=== PATIENT | female | born 1985 | race Caucasian/White ===

== ENCOUNTER 2023-05-11 02:53 | Emergency (ER) | payer OTHER, SELFPAY ==
[2023-05-11 02:54] VITALS: BP 137/84; PULSE 80; RESP 16; TEMP 36.6; O2SAT 100; BMI 24.4
[2023-05-11 02:57] VITALS: BP 137/84; PULSE 80; RESP 13; TEMP 36.6; O2SAT 100
--- NOTE | 2023-05-11 03:20 | CT_ITS ---
INDICATION: Neck pain EXAMINATION: CT NECK WITH CONTRAST - CT Soft Tissue Neck W/ Contrast Injection TECHNIQUE: Helically acquired images were obtained of the neck with sagittal and coronal reconstructed images. Individualized dose optimization techniques were used for this CT. IV contrast dosage and agent: 100 mL of Isovue 370. COMPARISON: None. FINDINGS: NASOPHARYNX: Unremarkable. SUPRAHYOID NECK: Unremarkable oropharynx, oral cavity, parapharyngeal space, and retropharyngeal space. INFRAHYOID NECK: Unremarkable larynx, hypopharynx, and supraglottis. THYROID: No nodule or mass visualized. SALIVARY GLANDS: Unremarkable. LYMPH NODES: No evidence of adenopathy. VASCULAR STRUCTURES: Unremarkable. VISUALIZED PORTIONS OF THE ORBITS, PARANASAL SINUSES, MASTOID AIR CELLS AND SKULL BASE: Unremarkable. BONES: Unremarkable. THORACIC INLET: Visualized lung apices are clear. CT/Soft Tissue Neck WITH Contrast IMPRESSION: Normal CT of the neck with IV contrast. Electronically Signed: Cayden Newell DO at 4:19 EDT ,
--- NOTE | 2023-05-11 03:22 | EX.ED.DYSGE1 ---
HPI History of Present Illness Chief Complaint: Weakness Detail of Chief Complaint: Dental pain and syncope Informant: patient Onset/Context/Timing Onset: Days (3) Context: Gradual Onset Timing: Continuous Quality: Throbbing Location: Right lower molars Worsened by: Nothing Relieved by: Nothing Narrative Narrative: Patient presents with a syncopal episode that occurred tonight. Patient states she passed out while she is in the bathroom. Patient states she has had a toothache that has been getting worse over the last 3 days. Patient stated she is scheduled to have it extracted later today. Patient states she has pain in her right lower molars that radiates into her neck. Patient states she has some numbness and tingling in both hands. Patient describes her pain as throbbing. Patient states nothing makes it better nothing makes it worse. Patient admits to low-grade fever of 100. Patient also admits to some subjective chills. [facility] Medical History (Updated 05/11/23 @ 04:[address] Jones Lam DO) Graves disease Hypothyroid Home Medications azithromycin 250 mg tablet 250 mg PO DAILY 05/11/23 [History Last Taken Unknown] levothyroxine 125 mcg tablet (Synthroid) 125 mcg PO DAILY 05/11/23 [History Last Taken Unknown] Allergy/AdvReac Type Severity Reaction Status Date / Time No Known Allergies Allergy Verified 05/11/23 02:58 Surgical History (Updated 05/11/23 @ 03:[address] Jones Lam DO) History of History of tonsillectomy and adenoidectomy Hx of thyroidectomy Previous back surgery Social History Smoking Status: Never smoker [facility] ED Constitutional Constitutional ED: Reports chills and fever(s) Eyes Eyes: Denies blurry vision or change in vision ENT ENT ED: Reports sore throat; Denies rhinorrhea Cardiovascular Cardiovascular: Denies chest pain or palpitations Respiratory/Chest Respiratory/Chest: Denies cough or dyspnea Gastrointestinal Gastrointestinal: Reports nausea and vomiting Genitourinary Genitourinary ED: Denies dysuria or hematuria Musculoskeletal Musculoskeletal: Reports neck pain; Denies back pain Integumentary Denies abscess or rash Neurologic Neurologic: Denies headache(s) or weakness Allergic/Immunologic Allergic/Immunologic ED: Denies mouth swelling or urticaria EXAM Physical Exam Const Vital Signs: 05/11/23 02:54 05/11/23 02:57 05/11/23 02:58 Temperature 97.9 F 97.9 F Temperature Source Temporal Temporal Pulse Rate 80 80 Respiratory Rate 16 13 Respiratory Effort Normal Respiratory Pattern Normal Blood Pressure 137/84 H 137/84 H Blood Pressure Mean 101 101 Pulse Ox 100 100 05/11/23 03:57 05/11/23 04:00 Temperature 98 F 98 F Temperature Source Temporal Temporal Pulse Rate 75 75 Respiratory Rate 18 13 Respiratory Effort Respiratory Pattern Blood Pressure 128/72 H 128/72 H Blood Pressure Mean 90 90 Pulse Ox 100 98 Positive well nourished and well developed General Appearance ED: well developed and NAD HEENT Reports moist mucous membranes HEENT Narrative: There is a dental carry noted over the right lower molars. There is some mild gingival edema. There is no erythema. There is no fluctuance. Oropharynx is clear. Airway is patent. There is no unilateral pharyngeal swelling. Eyes PERRL and EOMs intact bilaterally Neck supple and no JVD General: tenderness Resp normal respiratory effort and clear to auscultation bilaterally Cardio regular rate and regular rhythm GI non-tender Palpation: soft Neuro oriented x3, CN's II-XII intact bilaterally and no sensory deficits noted Sensorium / Orientation: alert Motor Exam: strength 5/5 throughout Psych mental status grossly normal MDM MDM MDM Narrative Medical decision making narrative: Differential diagnosis includes dental abscess, infected dental caries, pharyngeal abscess, syncope, and dehydration. CBC will be obtained to assess for leukocytosis and anemia. Basic metabolic profile will be obtained to assess for electrolyte abnormality and renal function. CT scan of the soft tissue neck will be obtained to assess for abscess. Lab Data Attestation: I reviewed the patient's lab results. Lab results narrative: CBC was reviewed. There is anemia with a hemoglobin of 8.9 and hematocrit of 29.5. Platelets were normal. White blood cell count was normal. Basic metabolic profile was reviewed. Potassium was slightly low at 3.3. Glucose was 115. The remainder was within normal limits. Labs: Laboratory Results - last 24 hr 05/11/23 05/11/23 03:40 03:40 WBC 7.9 RBC 3.76 L Hgb 8.9 L Hct 29.5 L MCV 78.5 L MCH 23.7 L MCHC 30.2 L RDW Std Deviation 41.2 RDW Coeff of James 14.4 Plt Count 225 MPV 11.0 Immature Gran % (Auto) 0.600 Neut % (Auto) 84.5 H Lymph % (Auto) 6.7 L [place] % (Auto) 7.4 Eos % (Auto) 0.3 Baso % (Auto) 0.5 Absolute Neuts (auto) 6.7 Absolute Lymphs (auto) 0.53 L Nucleated RBC % 0 Microcytosis 1+ Sodium 138 Potassium 3.3 L Chloride 107 Carbon Dioxide 24.0 Anion Gap 7 BUN 12 Creatinine 0.89 Estim Creat Clear Calc 96.73 Est GFR (MDRD) Af Amer 91 Est GFR (MDRD) Non-Af 75 BUN/Creatinine Ratio 13.4 Glucose 115 H Calcium 8.2 L Radiography Diagnostic Testing: Clinical Impression(s) from Imaging Studies Soft Tissue Neck CT 05/11/23 03:20 IMPRESSION: Normal CT of the neck with IV contrast. Electronically Signed: Cayden Newell DO at 4:19 EDT Reading Location ID and State: [facility] / [place] Tel , Service support , CT scan of the soft tissue neck was obtained. There is no evidence of abscess or soft tissue swelling. This was interpreted by the radiologist and was independently reviewed by myself. Treatment and Re-Evaluation :: Patient was given IV fluids, morphine, and Zofran. Patient was given a dose of Unasyn. Patient was still having some pain in the reevaluation. Patient was given a repeat dose of morphine. Patient was advised of her findings. Patient was given a dose of potassium for her hypokalemia. Patient was instructed to follow-up with her dentist today as scheduled. Patient and spouse understood and were agreeable with the plan. All questions were answered. Discharge Plan Triage Chief Complaint: Weakness ED Provider: Jones Lam Dx/Rx/DC Orders Clinical Impression: Syncope, Infected dental caries Instructions: ED Dental Cavity, ED Fainting, Vagal Reaction Prescriptions: No Action azithromycin 250 mg Tablet 250 mg PO DAILY Rx Instructions: start on day 2 of therapy levothyroxine [Synthroid] 125 mcg Tablet 125 mcg PO DAILY Primary Care Provider: CHELLE BHATTI Referrals: CHELLE BHATTI [Other] - 3-5 Days NOT,DEFINED [Non-Staff] - Disposition Disposition: Home, Self Care
[2023-05-11] MEDS: Morphine 4 MG/ML Syringe IV ×2 (03:34→04:40)
[2023-05-11] MEDS: 0.9% Normal Saline 1,000 ML 1000 ML IV (03:34)
[2023-05-11] MEDS: Ondansetron 4 MG/2 ML Vial IV (03:34)
[2023-05-11 03:46] LABS: Absolute Lymphocyte Count 0.53 X10^3/uL (0.83-4.51); Absolute Neutrophil Count 6.7 X10^3/uL (2.0-7.7); Basophil# 0.04 X10^3/uL; Basophil% 0.5 % (0-1); Eosinophil# 0.02 X10^3/uL; Eosinophils% 0.3 % (0-5); Hematocrit 29.5 % (37-47); Hemoglobin 8.9 g/dL (12.0-15.0); Lymphocyte # 0.53 X10^3/ul (0.83-4.51); Lymphocyte % 6.7 % (19-41); Mean Corp Hgb Conc 30.2 g/dL (32-36); Mean Corpuscular Hgb 23.7 pg (27.0-32.0); Mean Corpuscular Volume 78.5 fL (81-99); Monocyte# 0.59 X10^3/uL; Monocyte% 7.4 % (0-10); NRBC Flagged by Analyzer 0 % (0-5); Neutrophil % 84.5 % (47-70); POSITIVE DIFFERENTIAL YES; Platelet Count 225 K/mm3 (150-450); RBC Distribution Width CV 14.4 % (11.6-14.6); RBC Distribution Width SD 41.2 fl (35.1-43.9); Red Blood Count 3.76 M/mm3 (4.2-5.4); White Blood Count 7.9 K/mm3 (4.4-11.0)
[2023-05-11 03:56] LABS: Differential Indicated SCAN CRITERIA MET
[2023-05-11 03:57] VITALS: BP 128/72; PULSE 75; RESP 18; TEMP 36.6; O2SAT 100
[2023-05-11 04:00] VITALS: BP 128/72; PULSE 75; RESP 13; TEMP 36.6; O2SAT 98
[2023-05-11 04:00] LABS: Anion Gap 7 (5-15); BUN 12 mg/dL (7-18); BUN/Creat Ratio 13.4 RATIO (10-20); Calcium,Total 8.2 mg/dL (8.5-10.1); Chloride 107 mmol/L (98-107); Creatinine, Serum 0.89 mg/dL (0.55-1.02); EST Glomerular Filtration Rate 75 mL/min (>60); Est Glom Filt Rate - Afr Amer 91 mL/min (>60); Estimated Creatinine Clearance 96.73 ml/min; Glucose 115 mg/dL (74-106); Potassium 3.3 mmol/L (3.5-5.1); Sodium Level 138 mmol/L (136-145)
[2023-05-11 04:04] LABS: Microcytosis 1+
[2023-05-11] MEDS: Potassium Chloride Oral Soln 20 MEQ/15 ML UDC 40 MEQ PO (04:39)
[2023-05-11 04:45] VITALS: BP 128/71; PULSE 73; RESP 16; TEMP 36.6; O2SAT 100
== END 2023-05-11 04:55 | disposition home or self-care (01) ==
PROVIDERS: Emergency Provider Emergency Medicine; Visit Provider Emergency Medicine
DX: K02.9 Dental caries, unspecified (principal); R55 Syncope and collapse; E03.9 Hypothyroidism, unspecified; Z79.899 Other long term (current) drug therapy; E87.6 Hypokalemia
CPT/HCPCS: 70491; 80048; 85025; 96365; 96375; 96376; 99285; J7030; Q9967; A4216; J0295; J2405